=== PATIENT | female | born 1975 | race Caucasian/White ===

== ENCOUNTER 2018-07-11 00:29 | Emergency (ER) | payer OTHER ==
--- NOTE | 2018-07-11 00:34 | EDPHY ---
H & P Stated Complaint: chest pain Time Seen by Provider: 07/11/18 00:36 HPI/ROS: 43 yo F presents c/o left upper chest pain that began at 830 pm and has continued , worse with deep inspiration. Also with some mild shortness of breath. She rates the pain 3/10, sometimes the pain is sharp and 7/10. No nausea, no fever or chills, no recent illnesses, no cough. On oral contraceptives, no smoking, no prolonged travel, no leg cramps. Review of systems As per HPI General no fever no chills no weakness HEENT no eye pain no eye discharge. No eye redness, no sore throat Respiratory no cough, pos shortness of breath Cardiac pos chest pain, no peripheral edema GI no abdominal pain, no diarrhea, no constipation, no nausea, no vomiting no flank pain, no hematuria, no dysuria Musculoskeletal no myalgias, no joint pain Heme no easy bruising, no easy bleeding Endo no polyuria, no polydipsia Skin no rashes, no pruritus Neuro no syncope, no dizziness, no headaches Psych is no suicidal ideation, no homicidal ideation Source: Patient Exam Limitations: No limitations - Personal History LMP (Females 10-55): Unknown Current Tetanus Diphtheria and Acellular Pertussis (TDAP): Yes Tetanus Vaccine Date: WITHIN 10 YRS - Medical/Surgical History Hx Asthma: No Hx Chronic Respiratory Disease: No Hx Diabetes: No Hx Cardiac Disease: No Hx Renal Disease: No Hx Cirrhosis: No Hx Alcoholism: No Hx HIV/AIDS: No Hx Splenectomy or Spleen Trauma: No Other PMH: THYROID NODULES, RECENT TESTING FOR MS HAS BEEN NORMAL - Family History Significant Family History: No pertinent family hx - Social History Smoking Status: Never smoked Alcohol Use: None Drug Use: None - Physical Exam Exam: 43-year-old female alert and oriented no acute distress nontoxic appearance, afebrile HEENT atraumatic normocephalic, extraocular muscles intact, anicteric Oropharynx negative for erythema negative exudate, tolerating her own secretions Neck supple no meningismus Lungs clear to auscultation bilaterally Heart regular rate and rhythm without murmur rub or gallop Abdomen nondistended normoactive bowel sounds soft nontender Back no CVA tenderness, no step-offs, no spinal tenderness Extremities no cyanosis clubbing or edema Neuro alert and oriented, no focal deficits Constitutional: Initial Vital Signs Temperature (C) 36.6 C 07/11/18 00:35 Heart Rate 80 07/11/18 00:35 Respiratory Rate 20 07/11/18 00:35 Blood Pressure 143/100 H 07/11/18 00:35 O2 Sat (%) 100 07/11/18 00:35 O2 Delivery Mode Room Air Allergies/Adverse Reactions: No Known Allergies Allergy (Verified 01/24/14 22:26) Home Medications: Medication Instructions Recorded Miscellaneous Medical Supply [NO 1 ea MISC AD 10/12/12 HOME MEDS] Medical Decision Making - Diagnostics EKG Interpretation: Normal sinus rhythm rate 83, no ischemic changes, AL interval 127, QT interval 371 ED Course/Re-evaluation: Patient seen and evaluated for left upper chest pain IV established, lab sent EKG normal sinus rhythm Troponin 0 D-dimer neg CBC wnl, mild anemia, hgb 12.5 CMP wnl Chest x-ray neg Imp atypical chest pain Plan dc home f/u pcp Differential Diagnosis: Differential diagnosis considered but not limited to: Myocardial infarction, pneumothorax, pleural effusion, pulmonary embolus, pneumonia, costochondritis - Data Points Laboratory Results: 07/11/18 07/11/18 00:52 00:49 POC Sodium 134 mEq/L L mEq/L (135-145) POC Potassium 4.0 mEq/L mEq/L (3.3-5.0) POC Chloride 109.0 mEq/L mEq/L (97-110) POC Total CO2 28 mEq/L mEq/L (22-31) POC BUN 8 mg/dL mg/dL (7-23) POC Creatinine 0.9 mg/dL mg/dL (0.6-1.0) POC Glucose 104 mg/dL H mg/dL (70-100) POC Calcium 9.0 mg/dL mg/dL (8.5-10.4) POC Total Bilirubin 0.7 mg/dL mg/dL (0.1-1.4) POC AST 19 IU/L IU/L (14-46) POC ALT 14 IU/L IU/L (9-52) POC Alk Phosphatase 54 IU/L IU/L (38-126) POC Troponin I 0.00 ng/mL ng/mL (0.00-0.08) POC Total Protein 7.0 g/dL g/dL (6.3-8.2) POC Albumin 3.4 g/dL L g/dL (3.5-5.0) Point of Care Test Results: CBC CBC Collection Date 07/11/18 CBC Collection Time 00:45 WBC 6.7 RBC 4.68 HGB 12.5 HCT 39.0 PLT 268 Neut # 3.9 Neut 58.3 LYMPH # 2.2 LYMPH 33.4 Other WBC # 0.6 Other WBC 8.3 MCV 83.3 Chemistry 07/11/18 07/11/18 00:52 00:49 POC Sodium 134 mEq/L L mEq/L (135-145) POC Potassium 4.0 mEq/L mEq/L (3.3-5.0) POC Chloride 109.0 mEq/L mEq/L (97-110) POC Total CO2 28 mEq/L mEq/L (22-31) POC BUN 8 mg/dL mg/dL (7-23) POC Creatinine 0.9 mg/dL mg/dL (0.6-1.0) POC Glucose 104 mg/dL H mg/dL (70-100) POC Calcium 9.0 mg/dL mg/dL (8.5-10.4) POC Total Bilirubin 0.7 mg/dL mg/dL (0.1-1.4) POC AST 19 IU/L IU/L (14-46) POC ALT 14 IU/L IU/L (9-52) POC Alk Phosphatase 54 IU/L IU/L (38-126) POC Troponin I 0.00 ng/mL ng/mL (0.00-0.08) POC Total Protein 7.0 g/dL g/dL (6.3-8.2) POC Albumin 3.4 g/dL L g/dL (3.5-5.0) D-Dimer D-Dimer Collection Date 07/11/18 D-Dimer Collection Time 12:45 D-Dimer (ng/ml) <100 Departure - Departure Disposition: Home, Routine, Self-Care Clinical Impression: Chest pain, atypical Condition: Good Instructions: Noncardiac Chest Pain (ED), Shortness of Breath (ED) Referrals: Patient,NotPresent [Primary Care Provider] - As per Instructions
--- NOTE | 2018-07-11 01:00 | CPEKG ---
Test Reason : OPEN Blood Pressure : / mmHG Vent. Rate : 083 BPM Atrial Rate : 082 BPM P-R Int : 127 ms QRS Dur : 093 ms QT Int : 371 ms P-R-T Axes : 055 070 033 degrees QTc Int : 436 ms Sinus rhythm Confirmed by Lucila Gaitan ([id number]) on 07/11/2018 12:59:41 AM Referred By: Confirmed By:Lucila Gaitan
[2018-07-11 01:27] VITALS: BP 152/88
== END 2018-07-11 01:25 | disposition home or self-care (01) ==
LOC: CED 00:29
DX: R07.1 Chest pain on breathing (principal)
CPT/HCPCS: 71046-PO; 80053-PO; 84484-PO